=== PATIENT | female | born 1985 | race Caucasian/White ===

== ENCOUNTER → 2020-12-18 | Outpatient (CLI) | payer OTHER ==
--- NOTE | 2020-12-18 21:40 | CT ---
EXAMINATION TYPE: CT angio thor/abd pel aorta DATE OF EXAM: 12/18/2020 INDICATION: AORTIC STENOSIS COMPARISON: 10/22/2013 CT DLP: 368 mGycm CONTRAST: Performed without Oral Contrast and with IV Contrast, patient injected with 100 mL of Isovue 370. TECHNIQUE: Axial images at 5 mm thick sections. Reconstructed images in the coronal plane. Delayed images through the kidneys. 3-D reconstruction images performed separately on the computer. The [facility] nologist reviewed. 2-D reconstructive images coronal and sagittal planes and viewed. FINDINGS: CT CHEST: Portion of the thyroid visualized is normal. No suspicious lung nodules or focal infiltrates are present. No enlarged mediastinal or hilar adenopathy is evident. The ascending aorta diameter at the level of the main pulmonary artery is 3.8 cm. The main pulmonary artery diameter at the bifurcation is 2.3 cm. There is a three-vessel arch. CT ABDOMEN: Liver: Normal Spleen: Normal Pancreas: Normal Adrenal glands: The adrenal glands are normal. Gallbladder: Normal Kidneys: No masses are evident. No hydronephrosis is present. No cysts are present. Delayed images were obtained through the kidneys, which remain unremarkable. Aorta: Normal . No aneurysmal dilatation is evident. No dissection is evident. And 3-D reconstructed images there is some minimal kinking of the proximal descending colon best visu alized on the 3-D images. Significant flow-limiting stenosis however is not evident. Inferior vena cava: Normal. CT PELVIS: Diverticular changes are within the sigmoid colon. No acute diverticulitis is evident. Fecal debris i s scattered through the colon. Small bowel loops are unremarkable. The study is performed without ora l contrast limiting bowel evaluation Appendix: Not identified. No suspicious dilated tubular structure or inflammatory changes are evident . Urinary bladder: Normal. Genitourinary structures: The uterus appears normal. Adnexal regions are clear. Osseous structures: No suspicious lytic or sclerotic lesions. Mild sacroiliac joint degenerative dao ges are present. IMPRESSIONS: 1. There is some mild prominence of the ascending thoracic aorta in relation to the remaining portion s of the aorta. However, aortic aneurysm is not identified. 2. No aortic stenosis evident.
== END | disposition home or self-care (01) ==
LOC: RADCTMAIN 12:12
PROVIDERS: ATTEND Internal Medicine Interventional Cardiology
DX: I71.2 Thoracic aortic aneurysm, without rupture (principal)
CPT/HCPCS: 71275; 74174; Q9967

== ENCOUNTER → 2022-01-14 | Outpatient (CLI) | payer OTHER ==
[2022-01-14 18:07] LABS: HCT 40.7 % (37.2-46.3); HGB 13.3 g/dL (12.0-15.0); MCH 28.9 pg (27.0-32.0); MCHC 32.7 g/dL (32.0-37.0); MCV 88.3 fL (80.0-97.0); Mean Platelet Volume 11.1 fL (9.5-12.2); NRBC Per 100 WBC 0 /100 WBCS (0.0-0.0); Platelet Count 202 X 10*3/uL (140-440); RBC 4.61 X 10*6/uL (4.10-5.20); RDW 12.9 % (11.5-14.5); WBC 6.91 X 10*3/uL (4.50-10.00)
[2022-01-14 18:15] LABS: African American GFR (CKD) 126.4 (60.0-200.0); Anion Gap 9.3 mmol/L (10.00-18.00); BUN/Creat Ratio 14.29 Ratio (12.00-20.00); Blood Urea Nitrogen 10.3 mg/dL (9.0-27.0); Calcium 9.4 mg/dL (8.7-10.3); Carbon Dioxide 25.4 mmol/L (20.0-27.5); Non-African American GFR(CKD) 109.1 (60.0-200.0); Potassium 4.2 mmol/L (3.5-5.5)
== END | disposition home or self-care (01) ==
LOC: LABWHC1 14:41
PROVIDERS: ATTEND Internal Medicine Interventional Cardiology
DX: Z00.00 Encounter for general adult medical examination without abnormal findings (principal); R23.3 Spontaneous ecchymoses
CPT/HCPCS: 36415; 80048; 85027

== ENCOUNTER 2024-07-16 08:13 | Emergency (ER) | payer OTHER ==
[2024-07-16 08:22] VITALS: TEMP 98.4
--- NOTE | 2024-07-16 09:23 | ED ---
Nausea/Vomiting/Diarrhea HPI - General Chief complaint: Nausea/Vomiting/Diarrhea Stated complaint: lethargic Time Seen by Provider: 07/16/24 09:22 Source: patient, RN notes reviewed Mode of arrival: ambulatory Limitations: no limitations - History of Present Illness Initial comments: 39-year-old female presented to the ER with a chief complaint of lethargy. Patient states for the past couple of months she has had many life stressors and feels very depressed. She states this is influencing her appetite. She states she has a special needs daughter, is currently undergoing evaluation for open heart surgery due to aortic stenosis and recently went through a break-up. She denies any suicidal or homicidal ideations. No drug or alcohol use. Patient states that she feels very weak but denies any fevers, headache, cough, congestion, chest pain, shortness of breath, abdominal pain, constipation/diarrhea or urinary complaints. - Related Data Previous Rx's Medication Instructions Recorded Nitrofurantoin Monohyd/M-Cryst 100 mg PO Q12HR #14 cap 07/16/24 [Macrobid] Allergies Allergy/AdvReac Type Severity Reaction Status Date / Time No Known Allergies Allergy Verified 07/16/24 10:35 Review of Systems ROS Statement: Those systems with pertinent positive or pertinent negative responses have been documented in the HPI. ROS Other: All systems not noted in ROS Statement are negative. Past Medical History Additional Past Medical History / Comment(s): Aortic stenosis History of Any Multi-Drug Resistant Organisms: None Reported Past Surgical History: No Surgical Hx Reported Smoking Status: Former smoker Past Alcohol Use History: None Reported Past Drug Use History: None Reported General Exam - General Exam Comments Initial Comments: Visual Physical Exam Vital signs reviewed General: Well-appearing, nontoxic, no acute distress. Head: Normocephalic, atraumatic Eyes: PERRLA, EOMI ENT: Airway patent Chest: Nonlabored breathing Skin: No visual rash, normal skin tone Neuro: Alert and oriented 3 Musculoskeletal: No gross abnormalities Limitations: no limitations General appearance: alert, in no apparent distress, anxious Respiratory exam: Present: normal lung sounds bilaterally. Absent: respiratory distress, wheezes, rales, rhonchi, stridor Cardiovascular Exam: Present: regular rate, normal rhythm, systolic murmur (Aortic stenosis) GI/Abdominal exam: Present: soft, normal bowel sounds. Absent: distended, tenderness, guarding, rebound, rigid Neurological exam: Present: alert, oriented X3, CN II-XII intact Psychiatric exam: Present: depressed Skin exam: Present: warm, dry, intact, normal color. Absent: rash Course Vital Signs 07/16/24 07/16/24 08:19 16:15 Temperature 98.4 F Pulse Rate 79 72 Respiratory 20 16 Rate Blood Pressure 101/63 122/70 O2 Sat by Pulse 97 100 Oximetry Medical Decision Making - Medical Decision Making I performed the quick note portion of this chart. Electronically signed by Avery Montenegro PA-C Was pt. sent in by a medical professional or institution (SONI Maldonado, INCLUSION SPECIALIST, urgent care, hospital, or detention...) When possible be specific @ -No Did you speak to anyone other than the patient for history (EMS, parent, family, police, friend...)? What history was obtained from this source @ -No Did you review nursing and triage notes (agree or disagree)? Why? @ -I reviewed and agree with nursing and triage notes Were old charts reviewed (outside hosp., previous admission, EMS record, old EKG, old radiological studies, urgent care reports/EKG's, detention records)? Report findings @ -No old charts were reviewed Differential Diagnosis (chest pain, altered mental status, abdominal pain women, abdominal pain men, vaginal bleeding, weakness, fever, dyspnea, syncope, headache, dizziness, GI bleed, back pain, seizure, CVA, palpatations, mental health, musculoskeletal)? @ -Differential Abdominal Pain Women:Appendicitis, Cholecystitis, diverticulosis, ischemic bowel, pancreatitis, hepatitis, UTI, gastroenteritis, AAA, incarcerated hernia, bowel obstruction, constipation, inflammatory bowel, hepatitis, peptic ulcer disease, splenic infarction, perforated viscus, vulvitis , ovarian torsion, PID, kidney stone, placenta abruption, this is not meant to be an all-inclusive list EKG interpreted by me (3pts min.). @ -As above X-rays interpreted by me (1pt min.). @ -None done CT interpreted by me (1pt min.). @ -None done U/S interpreted by me (1pt. min.). @ -None done What testing was considered but not performed or refused? (CT, X-rays, U/S, labs)? Why? @ -None What meds were considered but not given or refused? Why? @ -None Did you discuss the management of the patient with other professionals (professionals i.e. , PA, INCLUSION SPECIALIST, lab, RT, psych nurse, social service worker, stone carver, teacher, wildlife conservation officer, egg caser)? Give summary @ -Case was discussed with Shameka from EPS who advised on outpatient therapy and management. Was smoking cessation discussed for >3mins.? @ -No Was critical care preformed (if so, how long)? @ -No Were there social determinants of health that impacted care today? How? (Homelessness, low income, unemployed, alcoholism, drug addiction, transportation, low edu. Level, literacy, decrease access to med. care, usp, rehab)? @ -No Was there de-escalation of care discussed even if they declined (Discuss DNR or withdrawal of care, Hospice)? DNR status @ -No What co-morbidities impacted this encounter? (DM, HTN, Smoking, COPD, CAD, Cancer, CVA, ARF, Chemo, Hep., AIDS, mental health diagnosis, sleep apnea, morbid obesity)? @ -Anxiety Was patient admitted / discharged? Hospital course, mention meds given and route, prescriptions, significant lab abnormalities, going to OR and other pertinent info. @ -Discharge. 39-year-old female presented the ER with a chief complaint of decreased appetite and lethargy. History and physical exam completed. Vitals within normal limits. Patient in no signs of acute distress. Exam benign. Laboratory studies obtained unremarkable. Urinalysis concerning for infection with 119 WBCs and large leukocyte esterases. Patient will be started on Macrobid. Viral swabs negative. As patient reporting many life stressors including break-up, special needs child and currently undergoing evaluation for open heart surgery. Patient is agreeable for EPS evaluation after medical joel cruz. Patient evaluated by EPS, Shameka, who advised on outpatient management and counseling. I believe patient symptoms are due from depression and many life stressors. Patient is stable for discharge at this time. Strict return parameters discussed. Patient discharged in stable condition with follow-up to PCP. Patient verbally expressed understanding and agreement with care plan. Case discussed with ED attending, Dr. Zaidi. Undiagnosed new problem with uncertain prognosis? @ -No Drug Therapy requiring intensive monitoring for toxicity (Heparin, Nitro, Insulin, Cardizem)? @ -No Were any procedures done? @ -No Diagnosis/symptom? @ -Anxiety/UTI Acute, or Chronic, or Acute on Chronic? @ -Acute Uncomplicated (without systemic symptoms) or Complicated (systemic symptoms)? @ -Uncomplicated Side effects of treatment? @ -No Exacerbation, Progression, or Severe Exacerbation? @ -No Poses a threat to life or bodily function? How? (Chest pain, [place], [place], pneumonia, PE, COPD, DKA, ARF, appy, cholecystitis, CVA, Diverticulitis, Homicidal, Suicidal, threat to staff... and all critical care pts) @ -No - Lab Data Result diagrams: 07/16/24 10:12 07/16/24 10:12 Lab Results 07/16/24 07/16/24 07/16/24 Range/Units 10:12 10:12 10:12 WBC 7.6 (3.8-10.6) k/uL RBC 4.61 (3.80-5.40) m/uL Hgb 13.6 (11.4-16.0) gm/dL Hct 41.4 (34.0-46.0) % MCV 89.9 (80.0-100.0) fL MCH 29.5 (25.0-35.0) pg MCHC 32.8 (31.0-37.0) g/dL RDW 12.4 (11.5-15.5) % Plt Count 209 (150-450) k/uL MPV 8.2 Neutrophils % 77 % Lymphocytes % 17 % Monocytes % 4 % Eosinophils % 0 % Basophils % 0 % Neutrophils # 5.8 (1.3-7.7) k/uL Lymphocytes # 1.3 (1.0-4.8) k/uL Monocytes # 0.3 (0-1.0) k/uL Eosinophils # 0.0 (0-0.7) k/uL Basophils # 0.0 (0-0.2) k/uL Sodium (137-145) mmol/L Potassium (3.5-5.1) mmol/L Chloride (98-107) mmol/L Carbon Dioxide (22-30) mmol/L Anion Gap mmol/L BUN (7-17) mg/dL Creatinine (0.52-1.04) mg/dL Est GFR (CKD-EPI)AfAm (>60 ml/min/1.73 sqM) Est GFR (CKD-EPI)NonAf (>60 ml/min/1.73 sqM) Glucose (74-99) mg/dL Calcium (8.4-10.2) mg/dL Total Bilirubin (0.2-1.3) mg/dL AST (14-36) U/L ALT (4-34) U/L Alkaline Phosphatase (38-126) U/L Total Protein (6.3-8.2) g/dL Albumin (3.5-5.0) g/dL Urine Color Colorless Urine Appearance Cloudy H (Clear) Urine pH 7.0 (5.0-8.0) Ur Specific [place] 1.006 (1.001-1.035) Urine Protein Negative (Negative) Urine Glucose (UA) Negative (Negative) Urine Ketones 1+ H (Negative) Urine Blood Moderate H (Negative) Urine Nitrite Negative (Negative) Urine Bilirubin Negative (Negative) Urine Urobilinogen <2.0 (<2.0) mg/dL Ur Leukocyte Esterase Large H (Negative) Urine RBC 9 H (0-5) /hpf Urine WBC 119 H (0-5) /hpf Ur Squamous Epith Cells 14 H (0-4) /hpf Urine Bacteria Rare H (None) /hpf Urine Mucus Rare H (None) /hpf Urine HCG, Qual Not Detected (Not Detectd) Influenza Type A (PCR) (Not Detectd) Influenza Type B (PCR) (Not Detectd) RSV (PCR) (Not Detectd) SARS-CoV-2 (PCR) (Not Detectd) 07/16/24 07/16/24 Range/Units 10:12 10:12 WBC (3.8-10.6) k/uL RBC (3.80-5.40) m/uL Hgb (11.4-16.0) gm/dL Hct (34.0-46.0) % MCV (80.0-100.0) fL MCH (25.0-35.0) pg MCHC (31.0-37.0) g/dL RDW (11.5-15.5) % Plt Count (150-450) k/uL MPV Neutrophils % % Lymphocytes % % Monocytes % % Eosinophils % % Basophils % % Neutrophils # (1.3-7.7) k/uL Lymphocytes # (1.0-4.8) k/uL Monocytes # (0-1.0) k/uL Eosinophils # (0-0.7) k/uL Basophils # (0-0.2) k/uL Sodium 139 (137-145) mmol/L Potassium 4.0 (3.5-5.1) mmol/L Chloride 107 (98-107) mmol/L Carbon Dioxide 26 (22-30) mmol/L Anion Gap 6 mmol/L BUN 5 L (7-17) mg/dL Creatinine 0.51 L (0.52-1.04) mg/dL Est GFR (CKD-EPI)AfAm >90 (>60 ml/min/1.73 sqM) Est GFR (CKD-EPI)NonAf >90 (>60 ml/min/1.73 sqM) Glucose 95 (74-99) mg/dL Calcium 9.4 (8.4-10.2) mg/dL Total Bilirubin 0.7 (0.2-1.3) mg/dL AST 20 (14-36) U/L ALT 9 (4-34) U/L Alkaline Phosphatase 40 (38-126) U/L Total Protein 7.7 (6.3-8.2) g/dL Albumin 5.0 (3.5-5.0) g/dL Urine Color Urine Appearance (Clear) Urine pH (5.0-8.0) Ur Specific [place] (1.001-1.035) Urine Protein (Negative) Urine Glucose (UA) (Negative) Urine Ketones (Negative) Urine Blood (Negative) Urine Nitrite (Negative) Urine Bilirubin (Negative) Urine Urobilinogen (<2.0) mg/dL Ur Leukocyte Esterase (Negative) Urine RBC (0-5) /hpf Urine WBC (0-5) /hpf Ur Squamous Epith Cells (0-4) /hpf Urine Bacteria (None) /hpf Urine Mucus (None) /hpf Urine HCG, Qual (Not Detectd) Influenza Type A (PCR) Not Detected (Not Detectd) Influenza Type B (PCR) Not Detected (Not Detectd) RSV (PCR) Not Detected (Not Detectd) SARS-CoV-2 (PCR) Not Detected (Not Detectd) - EKG Data -: EKG Interpreted by Me EKG Comments: EKG taken at 10: 05 showing a sinus rhythm with sinus arrhythmia. Incomplete right bundle branch block. No acute ST segment or T wave abnormalities. Ventricular rate 67, NC interval 135, QRS duration 118, QT/QTc 387/402. Disposition Clinical Impression: Anxiety, UTI (urinary tract infection) Disposition: HOME SELF-CARE Condition: Stable Additional Instructions: Follow-up with PCP. Complete full course of antibiotics. Return to the ER for any new or worsening concerns. Prescriptions: Nitrofurantoin Monohyd/M-Cryst [Macrobid] 100 mg PO Q12HR #14 cap Is patient prescribed a controlled substance at d/c from ED?: No Referrals: Rachele Michel MD [Primary Care Provider] - 1-2 days Time of Disposition: 16:05
[2024-07-16 10:25] LABS: Basophils % (A) 0 %; Eosinophils % (A) 0 %; HCT 41.4 % (34.0-46.0); HGB 13.6 gm/dL (11.4-16.0); Lymphocytes # (A) 1.3 k/uL (1.0-4.8); Lymphocytes % (A) 17 %; MCH 29.5 pg (25.0-35.0); MCHC 32.8 g/dL (31.0-37.0); MCV 89.9 fL (80.0-100.0); Mean Platelet Volume 8.2; Monocytes # (A) 0.3 k/uL (0-1.0); Monocytes % (A) 4 %; Neutrophils # (A) 5.8 k/uL (1.3-7.7); Neutrophils % (A) 77 %; Platelet Count 209 k/uL (150-450); RBC 4.61 m/uL (3.80-5.40); RDW 12.4 % (11.5-15.5); WBC 7.6 k/uL (3.8-10.6)
[2024-07-16 10:32] LABS: ALT 9 U/L (4-34); AST 20 U/L (14-36); African American GFR (CKD) >90 (>60 ml/min/1.73 sqM); Alkaline Phosphatase 40 U/L (38-126); Anion Gap 6 mmol/L; Blood Urea Nitrogen 5 mg/dL (7-17); Calcium 9.4 mg/dL (8.4-10.2); Carbon Dioxide 26 mmol/L (22-30); Chloride 107 mmol/L (98-107); Glucose 95 mg/dL (74-99); Non-African American GFR(CKD) >90 (>60 ml/min/1.73 sqM); Sodium 139 mmol/L (137-145); Total Bilirubin 0.7 mg/dL (0.2-1.3); Total Protein 7.7 g/dL (6.3-8.2)
[2024-07-16 11:03] LABS: Appearance,Urine Cloudy (Clear); Bacteria,Urine Rare /hpf; Bilirubin,Urine Negative (Negative); Blood,Urine Moderate (Negative); Color,Urine Colorless; Glucose,Urine (UA) Negative (Negative); Ketones,Urine 1+ (Negative); Leukocyte Esterase,Urine Large (Negative); Mucus,Urine Rare /hpf; Nitrite,Urine Negative (Negative); Protein,Urine Negative (Negative); RBC,Urine 9 /hpf (0-5); Specific Gravity,Urine 1.006 (1.001-1.035); Squamous Epithelial Cell,Urine 14 /hpf (0-4); Urobilinogen,Urine <2.0 mg/dL (<2.0); WBC,Urine 119 /hpf (0-5)
[2024-07-16 16:18] VITALS: BP 122/70; PULSE 72; RESP 16
== END 2024-07-16 16:32 | disposition home or self-care (01) ==
LOC: EC 08:13
CPT/HCPCS: 36415; 80053; 81001; 81025; 82075; 85025; 87086; 87636; 93005; 99284

== ENCOUNTER 2024-07-26 07:42 | Emergency (ER) | payer OTHER ==
[2024-07-26 07:51] VITALS: RESP 18; TEMP 97.9
--- NOTE | 2024-07-26 08:08 | ED ---
General Adult HPI - General Chief complaint: Nausea/Vomiting/Diarrhea Stated complaint: nausea Time Seen by Provider: 07/26/24 07:47 Source: patient, family, RN notes reviewed Mode of arrival: ambulatory Limitations: no limitations - History of Present Illness Initial comments: Patient is a 39-year-old female presenting emergency department with concerns for nausea. Symptoms have been present for the past few days. Patient did have similar symptoms a couple of weeks ago. Patient is experiencing some anxiety. Patient has some palpitations at nighttime. Patient has known aortic stenosis with plans to have valve replacement in the next couple of months. No fevers. Patient did vomit a couple times the past 2 days. Decreased appetite. No abd ominal pain. Patient denies possible . - Related Data Previous Rx's Medication Instructions Recorded Ondansetron Odt [Zofran Odt] 4 mg PO Q8HR PRN #10 tab 07/26/24 Allergies Allergy/AdvReac Type Severity Reaction Status Date / Time No Known Allergies Allergy Verified 07/26/24 09:20 Review of Systems ROS Statement: Those systems with pertinent positive or pertinent negative responses have been documented in the HPI. ROS Other: All systems not noted in ROS Statement are negative. Constitutional: Denies: fever Eyes: Denies: eye pain ENT: Denies: ear pain Respiratory: Denies: cough Cardiovascular: Denies: chest pain Endocrine: Denies: fatigue Gastrointestinal: Reports: as per HPI, nausea, vomiting Genitourinary: Denies: dysuria Musculoskeletal: Denies: back pain Psychiatric: Reports: anxiety Past Medical History Additional Past Medical History / Comment(s): Aortic stenosis History of Any Multi-Drug Resistant Organisms: None Reported Past Surgical History: Heart Catheterization Smoking Status: Former smoker Past Alcohol Use History: None Reported Past Drug Use History: None Reported General Exam Limitations: no limitations General appearance: alert, in no apparent distress Head exam: Present: normocephalic Eye exam: Present: normal appearance Neck exam: Present: normal inspection Respiratory exam: Present: normal lung sounds bilaterally. Absent: respiratory distress Cardiovascular Exam: Present: regular rate, normal rhythm, systolic murmur GI/Abdominal exam: Present: soft. Absent: tenderness Extremities exam: Present: normal inspection. Absent: pedal edema, calf tenderness Neurological exam: Present: alert, oriented X3, CN II-XII intact. Absent: motor sensory deficit Psychiatric exam: Present: normal affect, normal mood Skin exam: Present: normal color Course Vital Signs 07/26/24 07:47 Temperature 97.9 F Pulse Rate 81 Respiratory 18 Rate Blood Pressure 101/61 O2 Sat by Pulse 97 Oximetry EKG Findings - EKG Results: EKG: interpreted by JAYLIN (Right ventricular conduction delay), sinus rhythm, normal axis, normal ST/T Medical Decision Making - Medical Decision Making Was pt. sent in by a medical professional or institution (, [facility], [facility], urgent care, hospital, or fdc...) When possible be specific @ -No Did you speak to anyone other than the patient for history (EMS, parent, family, police, friend...)? What history was obtained from this source @ -Mother is present and helps provide additional history that patient had an EKG done a couple of weeks ago Did you review nursing and triage notes (agree or disagree)? Why? @ -I reviewed and agree with nursing and triage notes Were old charts reviewed (outside hosp., previous admission, EMS record, old EKG, old radiological studies, urgent care reports/EKG's, fdc records)? Report findings @ -No old charts were reviewed Differential Diagnosis (chest pain, altered mental status, abdominal pain women, abdominal pain men, vaginal bleeding, weakness, fever, dyspnea, syncope, headache, dizziness, GI bleed, back pain, seizure, CVA, palpatations, mental health, musculoskeletal)? @ -Differential Palpitations Ventricular arrhythmias, atrial arrhythmias, myocardial infarction, anemia, thyrotoxicosis, electrolyte imbalance, hypokalemia, pulmonary embolism, pulmonary disease, drugs, alcohol, anxiety, stress.... This is not meant to be an all-inclusive list. EKG interpreted by me (3pts min.). @ -As above X-rays interpreted by me (1pt min.). @ -None done CT interpreted by me (1pt min.). @ -None done U/S interpreted by me (1pt. min.). @ -None done What testing was considered but not performed or refused? (CT, X-rays, U/S, labs)? Why? @ -None What meds were considered but not given or refused? Why? @ -None Did you discuss the management of the patient with other professionals (professionals i.e. , [facility], [facility], lab, RT, psych nurse, marriage and family social worker, painting department supervisor, teacher, commercial credit officer, case hardener)? Give summary @ -No Was smoking cessation discussed for >3mins.? @ -No Was critical care preformed (if so, how long)? @ -No Were there social determinants of health that impacted care today? How? (Home lessness, low income, unemployed, alcoholism, drug addiction, transportation, low edu. Level, literacy, decrease access to med. care, care home, rehab)? @ -No Was there de-escalation of care discussed even if they declined (Discuss DNR or withdrawal of care, Hospice)? DNR status @ -No What co-morbidities impacted this encounter? (DM, HTN, Smoking, COPD, CAD, Cancer, CVA, ARF, Chemo, Hep., AIDS, mental health diagnosis, sleep apnea, morbid obesity)? @ -Aortic stenosis history Was patient admitted / discharged? Hospital course, mention meds given and route, prescriptions, significant lab abnormalities, going to OR and other pertinent info. @ -Patient presents with nausea and abdominal symptoms and anxiety. Patient reevaluated and significantly improved with medications. Evaluation unremarka ble. Patient will be discharged with follow-up with primary care physician as well as cardiology which she is already established with Undiagnosed new problem with uncertain prognosis? @ -No Drug Therapy requiring intensive monitoring for toxicity (Heparin, Nitro, Insulin, Cardizem)? @ -No Were any procedures done? @ -No Diagnosis/symptom? @ -Nausea Acute, or Chronic, or Acute on Chronic? @ -Acute Uncomplicated (without systemic symptoms) or Complicated (systemic symptoms)? @ -Default Side effects of treatment? @ -No Exacerbation, Progression, or Severe Exacerbation? @ -No Poses a threat to life or bodily function? How? (Chest pain, [place], [place], pneumonia, PE, COPD, DKA, ARF, appy, cholecystitis, CVA, Diverticulitis, Homicidal, Suicidal, threat to staff... and all critical care pts) @ -No - Lab Data Result diagrams: 07/26/24 08:14 07/26/24 08:14 Lab Results 07/26/24 07/26/24 07/26/24 Range/Units 08:14 08:14 08:14 WBC 7.3 (3.8-10.6) k/uL RBC 4.42 (3.80-5.40) m/uL Hgb 13.0 (11.4-16.0) gm/dL Hct 39.3 (34.0-46.0) % MCV 88.8 (80.0-100.0) fL MCH 29.5 (25.0-35.0) pg MCHC 33.2 (31.0-37.0) g/dL RDW 12.5 (11.5-15.5) % Plt Count 199 (150-450) k/uL MPV 7.9 Neutrophils % 78 % Lymphocytes % 16 % Monocytes % 5 % Eosinophils % 1 % Basophils % 0 % Neutrophils # 5.6 (1.3-7.7) k/uL Lymphocytes # 1.2 (1.0-4.8) k/uL Monocytes # 0.3 (0-1.0) k/uL Eosinophils # 0.0 (0-0.7) k/uL Basophils # 0.0 (0-0.2) k/uL Sodium 139 (137-145) mmol/L Potassium 4.0 (3.5-5.1) mmol/L Chloride 106 (98-107) mmol/L Carbon Dioxide 28 (22-30) mmol/L Anion Gap 5 mmol/L BUN 7 (7-17) mg/dL Creatinine 0.55 (0.52-1.04) mg/dL Est GFR (CKD-EPI)AfAm >90 (>60 ml/min/1.73 sqM) Est GFR (CKD-EPI)NonAf >90 (>60 ml/min/1.73 sqM) Glucose 99 (74-99) mg/dL Calcium 9.3 (8.4-10.2) mg/dL Total Bilirubin 0.7 (0.2-1.3) mg/dL AST 20 (14-36) U/L ALT 9 (4-34) U/L Alkaline Phosphatase 40 (38-126) U/L Total Protein 7.3 (6.3-8.2) g/dL Albumin 4.5 (3.5-5.0) g/dL Amylase 43 (30-110) U/L Lipase 66 (23-300) U/L Urine Color Light Yellow Urine Appearance Clear (Clear) Urine pH 6.0 (5.0-8.0) Ur Specific [place] 1.013 (1.001-1.035) Urine Protein Negative (Negative) Urine Glucose (UA) Negative (Negative) Urine Ketones Trace H (Negative) Urine Blood Small H (Negative) Urine Nitrite Negative (Negative) Urine Bilirubin Negative (Negative) Urine Urobilinogen <2.0 (<2.0) mg/dL Ur Leukocyte Esterase Moderate H (Negative) Urine RBC 6 H (0-5) /hpf Urine WBC 6 H (0-5) /hpf Ur Squamous Epith Cells 6 H (0-4) /hpf Urine Bacteria Occasional H (None) /hpf Urine Mucus Many H (None) /hpf Urine HCG, Qual (Not Detectd) 07/26/24 Range/Units 08:14 WBC (3.8-10.6) k/uL RBC (3.80-5.40) m/uL Hgb (11.4-16.0) gm/dL Hct (34.0-46.0) % MCV (80.0-100.0) fL MCH (25.0-35.0) pg MCHC (31.0-37.0) g/dL RDW (11.5-15.5) % Plt Count (150-450) k/uL MPV Neutrophils % % Lymphocytes % % Monocytes % % Eosinophils % % Basophils % % Neutrophils # (1.3-7.7) k/uL Lymphocytes # (1.0-4.8) k/uL Monocytes # (0-1.0) k/uL Eosinophils # (0-0.7) k/uL Basophils # (0-0.2) k/uL Sodium (137-145) mmol/L Potassium (3.5-5.1) mmol/L Chloride (98-107) mmol/L Carbon Dioxide (22-30) mmol/L Anion Gap mmol/L BUN (7-17) mg/dL Creatinine (0.52-1.04) mg/dL Est GFR (CKD-EPI)AfAm (>60 ml/min/1.73 sqM) Est GFR (CKD-EPI)NonAf (>60 ml/min/1.73 sqM) Glucose (74-99) mg/dL Calcium (8.4-10.2) mg/dL Total Bilirubin (0.2-1.3) mg/dL AST (14-36) U/L ALT (4-34) U/L Alkaline Phosphatase (38-126) U/L Total Protein (6.3-8.2) g/dL Albumin (3.5-5.0) g/dL Amylase (30-110) U/L Lipase (23-300) U/L Urine Color Urine Appearance (Clear) Urine pH (5.0-8.0) Ur Specific [place] (1.001-1.035) Urine Protein (Negative) Urine Glucose (UA) (Negative) Urine Ketones (Negative) Urine Blood (Negative) Urine Nitrite (Negative) Urine Bilirubin (Negative) Urine Urobilinogen (<2.0) mg/dL Ur Leukocyte Esterase (Negative) Urine RBC (0-5) /hpf Urine WBC (0-5) /hpf Ur Squamous Epith Cells (0-4) /hpf Urine Bacteria (None) /hpf Urine Mucus (None) /hpf Urine HCG, Qual Not Detected (Not Detectd) Disposition Clinical Impression: Nausea Disposition: HOME SELF-CARE Condition: Stable Instructions (If sedation given, give patient instructions): Acute Nausea and Vomiting (ED), Anxiety (ED) Additional Instructions: 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 Return for increased heart rate, uncontrolled vomiting, pain, worsening symptoms or any other concerns. Prescription for nausea medication sent to pharmacy Prescriptions: Ondansetron Odt [Zofran Odt] 4 mg PO Q8HR PRN #10 tab PRN Reason: Nausea Is patient prescribed a controlled substance at d/c from ED?: No Referrals: Rachele Michel MD [Primary Care Provider] - 1-2 days Time of Disposition: 09:44
[2024-07-26] MEDS: LORazepam 2 MG/ML INJ IV STA (08:24)
[2024-07-26] MEDS: SODIUM CHLORIDE 0.9% 500 ML 500 ML IV STA (08:25)
[2024-07-26] MEDS: ONDANSETRON 4 MG/2 ML VIAL IVP STA (08:25)
[2024-07-26] MEDS: FAMOTIDINE 20 MG/2 ML VIAL IV STA (08:25)
[2024-07-26 08:29] LABS: Basophils % (A) 0 %; Eosinophils % (A) 1 %; HCT 39.3 % (34.0-46.0); Lymphocytes # (A) 1.2 k/uL (1.0-4.8); Lymphocytes % (A) 16 %; MCH 29.5 pg (25.0-35.0); MCHC 33.2 g/dL (31.0-37.0); MCV 88.8 fL (80.0-100.0); Mean Platelet Volume 7.9; Monocytes # (A) 0.3 k/uL (0-1.0); Monocytes % (A) 5 %; Neutrophils # (A) 5.6 k/uL (1.3-7.7); Neutrophils % (A) 78 %; Platelet Count 199 k/uL (150-450); RBC 4.42 m/uL (3.80-5.40); RDW 12.5 % (11.5-15.5); WBC 7.3 k/uL (3.8-10.6)
[2024-07-26 08:44] LABS: ALT 9 U/L (4-34); AST 20 U/L (14-36); African American GFR (CKD) >90 (>60 ml/min/1.73 sqM); Albumin 4.5 g/dL (3.5-5.0); Alkaline Phosphatase 40 U/L (38-126); Amylase 43 U/L (30-110); Anion Gap 5 mmol/L; Blood Urea Nitrogen 7 mg/dL (7-17); Calcium 9.3 mg/dL (8.4-10.2); Carbon Dioxide 28 mmol/L (22-30); Chloride 106 mmol/L (98-107); Glucose 99 mg/dL (74-99); Lipase 66 U/L (23-300); Non-African American GFR(CKD) >90 (>60 ml/min/1.73 sqM); Sodium 139 mmol/L (137-145); Total Bilirubin 0.7 mg/dL (0.2-1.3); Total Protein 7.3 g/dL (6.3-8.2)
[2024-07-26 08:56] LABS: Appearance,Urine Clear (Clear); Bacteria,Urine Occasional /hpf; Bilirubin,Urine Negative (Negative); Blood,Urine Small (Negative); Color,Urine Light Yellow; Glucose,Urine (UA) Negative (Negative); Ketones,Urine Trace (Negative); Leukocyte Esterase,Urine Moderate (Negative); Mucus,Urine Many /hpf; Nitrite,Urine Negative (Negative); Protein,Urine Negative (Negative); RBC,Urine 6 /hpf (0-5); Specific Gravity,Urine 1.013 (1.001-1.035); Squamous Epithelial Cell,Urine 6 /hpf (0-4); Urobilinogen,Urine <2.0 mg/dL (<2.0); WBC,Urine 6 /hpf (0-5)
[2024-07-26] MEDS: LORazepam 1 MG TAB PO STA (10:06)
[2024-07-26 10:07] VITALS: BP 98/55; PULSE 63
== END 2024-07-26 10:08 | disposition home or self-care (01) ==
LOC: EC 07:42
CPT/HCPCS: 36415; 80053; 81001; 81025; 82150; 83690; 85025; 93005; 96361; 96374; 96375; 99284

== ENCOUNTER → 2025-01-14 | Outpatient (CLI) | payer OTHER ==
[2025-01-14 18:29] LABS: Basophils # (A) 0.04 X 10*3/uL (0.00-0.10); Basophils % (A) 0.6 %; Eosinophils # (A) 0.09 X 10*3/uL (0.04-0.35); Eosinophils % (A) 1.3 %; HCT 38.8 % (37.2-46.3); HGB 11.9 g/dL (12.0-15.0); Lymphocytes # (A) 1.99 X 10*3/uL (0.90-5.00); MCHC 30.7 g/dL (32.0-37.0); MCV 84.7 FL (80.0-97.0); Monocytes # (A) 0.48 X 10*3/uL (0.20-1.00); NRBC Per 100 WBC 0 X 10*3/uL (0.00-0.01); Neutrophils # (A) 4.26 X 10*3/uL (1.80-7.70); Platelet Count 237 X 10*3/uL (140-440); RBC 4.58 X 10*6/uL (4.10-5.20); RDW 14.8 % (11.5-14.5); WBC 6.87 X 10*3/uL (4.50-10.00)
[2025-01-14 20:32] LABS: % Iron Saturation 23.24 (12.00-45.00); ALT 16 U/L (8-44); AST 28 U/L (13-35); Albumin 4.5 g/dL (3.8-4.9); Albumin/Globulin Ratio 1.55 Ratio (1.60-3.17); Alkaline Phosphatase 73 U/L (41-126); Blood Urea Nitrogen 12.3 mg/dL (9.0-27.0); Calcium 9.5 mg/dL (8.7-10.3); Carbon Dioxide 28.5 mmol/L (21.6-31.8); Chloride 100 mmol/L (96-109); Globulin 2.9 g/dL (1.6-3.3); Glucose 68 mg/dL (70-110); Iron 96 UG/DL (50-170); Potassium 4.4 mmol/L (3.5-5.5); Sodium 139 mmol/L (135-145); Total Bilirubin 0.2 mg/dL (0.3-1.2); Total Iron Binding Capacity 413 UG/DL (228-460); Total Protein 7.4 g/dL (6.2-8.2)
== END | disposition home or self-care (01) ==
LOC: LABWHC1 13:28
PROVIDERS: ATTEND Family Medicine
DX: I49.5 Sick sinus syndrome (principal); D50.0 Iron deficiency anemia secondary to blood loss (chronic); D51.9 Vitamin B12 deficiency anemia, unspecified; Q23.0 Congenital stenosis of aortic valve
CPT/HCPCS: 36415; 80053; 82533; 82607; 83540; 83550; 84443; 85025